=== PATIENT | female | born 1970 | race Caucasian/White ===

== ENCOUNTER 2021-11-06 04:23 | Emergency (ER) | payer OTHER ==
[~2021-11-06] VITALS: Ht 162.6 cm; Wt 69.9 kg
[~2021-11-06 04:23] MED LIST: PARO10TA85
[2021-11-06 04:26] VITALS: BP_SYST 137
--- NOTE | 2021-11-06 04:31 | NUR ---
PT HERE FOR LACERATION TO UPPER AND LOWER LIP S/P TRIPPED AND FALL OVER A DOG AND HIT HER CHIN ON BEDBOARD. PT DENIES KO. PT ASSISTED TO RM6, AMBULATED WITH STEADY. REPORT GIVEN TO JESSICA.
[2021-11-06] MEDS ORDERED: LIDOCAINE VISCOUS 2%, 15 ML UDC MM ONE (04:45)
[2021-11-06] MEDS ORDERED: KETOROLAC TROMETHAMINE 30 MG VIAL IM ONE (04:45)
[2021-11-06] MEDS ORDERED: LIDOCAINE MPF 2% 5mL VIAL INJ ONE (04:45)
--- NOTE | 2021-11-06 05:03 | NUR ---
Pt c/o pain to lower lip s/p tripping on dog and hitting lower lip on bed frame. Noted with small lac with small amt of active bleeding, gauze held on lac. Suture setup and lidocaine put at bedside. Dr. Castaneda now at bedside suturing.
[2021-11-06] MEDS ORDERED: BACI15OI13 TP (05:40)
[2021-11-06] MEDS ORDERED: IBUP-1969 PO (05:41)
[2021-11-06] MEDS ORDERED: BACITRACIN ZINC 15 GM TOPICAL OINTMENT TP ONE (05:45)
[2021-11-06] MEDS ORDERED: BACITRACIN 1 GM OINT TP ONE (06:04)
[2021-11-06 06:12] VITALS: BP_SYST 128
--- NOTE | 2021-11-06 06:12 | NUR ---
Pt sutures done by Dr. Castaneda, RN applied Bacitracin and nonadherant bandage to outer lip sutures. Pt states d/c and Rx education understood, will f/u with PCP. Left a/ox4, steady gait.
== END 2021-11-06 06:12 | disposition home or self-care (01) ==
LOC: SED 04:23
DX: S01.81XA Laceration without foreign body of other part of head, initial encounter (principal); S01.512A Laceration without foreign body of oral cavity, initial encounter; Z79.899 Other long term (current) drug therapy; W01.0XXA Fall on same level from slipping, tripping and stumbling without subsequent striking against object, initial encounter; Y93.89 Activity, other specified; Y92.89 Other specified places as the place of occurrence of the external cause; Y99.8 Other external cause status
CPT/HCPCS: 99283; 12013; 96372; J2001 ×2; J1885

== ENCOUNTER 2021-11-14 09:06 | Emergency (ER) | payer OTHER ==
[~2021-11-14] VITALS: Ht 162.6 cm; Wt 67.6 kg
[2021-11-14 09:06] VITALS: BP_SYST 113
[~2021-11-14 09:06] MED LIST changes: +BACI15OI13 TP; +IBUP-1969 PO
--- NOTE | 2021-11-14 09:06 | NUR ---
BROUGHT BACK TO BED #7 AND TRIAGED. REPORT GIVEN TO DARREN
--- NOTE | 2021-11-14 09:19 | NUR ---
Patient arrived to room 7 for sutures to be removed. Five sutures noted. Patient was originally here last thursday. Patient has sutures inside mouth that "hadn't dissolved." Dr. Castillo came to see patient.
--- NOTE | 2021-11-14 09:22 | NUR ---
Dr Castillo evaluating patient at bedside
[2021-11-14] MEDS ORDERED: BACITRACIN 1 GM OINT TP ONE (09:30)
[2021-11-14 09:41] VITALS: BP_SYST 136
--- NOTE | 2021-11-14 09:50 | NUR ---
Patient given written and verbal discharge instructions and verbalizes understanding. ER MD discussed with patient the results and treatment provided. Patient in stable condition. ID arm band removed. IV catheter removed intact and dressing applied, no active bleeding. Patient educated on pain management and to follow up with PMD. Opportunity for questions provided and answered. Medication side effect fact sheet provided. No distress noted.
== END 2021-11-14 09:50 | disposition home or self-care (01) ==
LOC: SED 09:06
DX: Z48.02 Encounter for removal of sutures (principal); Z79.899 Other long term (current) drug therapy
CPT/HCPCS: 99282